=== PATIENT | female | born 1995 | race Caucasian/White ===

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

== ENCOUNTER 2017-01-30 13:48 | Inpatient (IN) | payer MEDICARE, MEDICAID ==
[~2017-01-30] VITALS: Ht 172.7 cm; Wt 63.2 kg
--- NOTE | ~2017-01-30 | CON ---
[place], [place] REPORT OF CONSULTATION [id number] UN[facility] #: [id number] ROOM: 403 DOCTOR: RM BERNSTEIN MD BIRTHDATE: [birth year] DOS: HISTORY OF PRESENT ILLNESS: The patient has presented with multiple complaints, epigastric distress as well as complaining that she has seen blood in her stool. The patient has been rectally examined. There is evidence of blood. The patient is a drinker of 3-4 large bottles of Mountain Dew and gastric distress with nausea. The patient is with a history of distal esophageal ulcer and normal colonoscopy on 12/01/2016. The patient therefore has been under investigation. She had recent set of blood work done, white blood cell was 6, H and H of 12 and 36. Lactic acid 1.0. INR 1.2. Comprehensive metabolic panel, electrolyte balance, liver function tests are normal. Amylase and lipase are normal. CT scan of the abdomen and pelvis, no acute process. CBC differential within normal limit. Comprehensive metabolic panel reassessed. PAST MEDICAL HISTORY: Associated with gastroesophageal reflux, anxiety, depression, POTS or postural orthostatic tachycardia history. PAST SURGICAL HISTORY: Cholecystectomy, EGD and colonoscopy recently. SOCIAL HISTORY: Nonsmoker, nonalcohol consumer, moderate consumer up large bottle of Mountain Dew. History otherwise unremarkable. FAMILY HISTORY: Noncontributory. ALLERGIES: PENICILLIN, TRAMADOL, MIDOL, LEVAQUIN. MEDICATIONS: List has been reviewed. REVIEW OF SYSTEMS: GENERAL: No hematemesis, no hematochezia, no shortness of breath, no chest pain. DIGESTIVE SYSTEM: Complain of blood in the stool and nausea, epigastric distress. PHYSICAL EXAMINATION: VITAL SIGNS: Stable. GENERAL: Not in acute distress. HEENT: Head normocephalic, nontraumatic. Mouth and buccal mucosa benign. NECK: Supple, no thyromegaly. CHEST: Symmetric anatomy, equal expansion. No wheeze. No rhonchi. HEART: Normal sinus rhythm, no gallop, no murmur. ABDOMEN: Soft. No hepato-organomegaly. Bowel sounds present. No pulsatile mass. EXTREMITIES: No cyanosis, no pedal edema. NEUROLOGIC: Alert, oriented to time, place and person. RECTAL: No blood on the glove. IMPRESSION: Gastritis secondary to large volume of Mountain Dew caffeinated beverage drinking. The patient advised to stop caffeinated beverages, history of gastritis, distal esophageal ulcer in past, history of normal colonoscopy, [place], [place] REPORT OF CONSULTATION NAME: ARLIN NORTH UNIT #: [id number] ROOM: [facility] DOCTOR: AMANDEEP LAINEZ,RM BIRTHDATE: [birth year] anxiety, depression. PLAN AND DISCUSSION: Protonix 40 mg every day p.o. would suffice, symptomatic management of other systems has been addressed by Internal Medicine Department. RM BERNSTEIN MD CM:CONSTR:REPORT OF CONSULTATION 1042 02/01/17 1355 interface
--- NOTE | ~2017-01-30 | PR ---
[place], [place] PROGRESS NOTE [id number] UN[facility] #: [id number] ROOM: 403 DOCTOR: KATLIN HARTMAN MD BIRTHDATE: [birth year] DOS: SUBJECTIVE: The patient was seen today at her bedside with her mother in attendance. She still feels poorly. She states that when she stands up, her heart races and she feels lightheaded. She did have a 500 mL bolus of saline solution last night, but states that it did not make any difference. This morning, her heart rate still increased to 160 when she stood up and she felt lightheaded like she could pass out. She had to sit down immediately. She denies any chest pain. She has not had any more vomiting, although she does have dry heaves. She states that she has been constipated for the last 2 days. PHYSICAL EXAMINATION: VITAL SIGNS: Her pulse is 120 and regular, blood pressure is 90/60. She is afebrile. She weighs 63.2 kilograms with a body mass index of 21.2. HEENT: Normocephalic, atraumatic. Extraocular muscles are intact. Sclerae are clear. Pupils are equal, round and reactive to light. The oral mucosa is moist. Tongue is midline. NECK: Supple. She has no jugular distention. Carotids are full without bruits. She has no neck or supraclavicular masses and no thyromegaly. LUNGS: Respirations are unlabored. Her chest is clear to auscultation and percussion. She has no presacral edema or chest wall tenderness. HEART: Has a regular rhythm without murmurs, rubs or gallops. ABDOMEN: Soft and diffusely tender. EXTREMITIES: Showed no edema. IMPRESSION: She continues to have symptoms of orthostatic tachycardia. PLAN: We will give her another fluid bolus today and recheck her CBC to make sure that she is not still losing blood. No other cardiac workup is planned at this time. I thank the hospitalist physicians for asking our advice regarding her care. KATLIN HARTMAN MD CM:PNTRANS [id number] KATLIN HARTMAN MD 02/02/17 2237 interface
--- NOTE | ~2017-01-30 | PR ---
[place], [place] PROGRESS NOTE [id number] #: [id number] ROOM: 403 DOCTOR: IRNIA MOORE MD BIRTHDATE: [birth year] DOS: INTERVAL NOTE SUBJECTIVE: The patient is doing the same as she was admitted on Thursday. She is still having abdominal pain. Dr. Romo saw the patient and he agreed with Protonix 40 mg IV. He is not planning any EGD at this point as she had already EGD done in the past. The patient was started on Carafate 1 gram 4 times a day and liquid diet was advanced. Then, the patient was seen by Dr. Young over the weekend. She was seen also by Cardiology and she has POTS (postural orthostatic tachycardia syndrome). The patient was recommended to cut back on her Adderall and also Abilify and 2D echo was ordered to rule out any structural heart disease. The patient was also given 500 mL of normal saline and was also suggested to avoid caffeine and decongestant that might increase her heart rate. Also he said that he would save medications such as fludrocortisone or beta blockers for intractable symptoms assuming that other measures are not helpful. Then, I saw the patient today morning. The patient is not having any chest pain or shortness of breath. She continues to have abdominal pain. OBJECTIVE: VITAL SIGNS: Blood pressure 90/60, pulse is 109, respiratory rate is 20, temperature 97.9. HEENT: Head normocephalic, atraumatic. Pupils equal, round, react to light. Extraocular movements are intact. Ear, nose, and throat: No discharge noted. NECK: No JVD, no lymphadenopathy, no thyromegaly. CHEST: Clinically clear to auscultation bilaterally. HEART: S1, S2, regular rate and no murmur, gallop or rub. ABDOMEN: Soft, but she does have diffuse tenderness. EXTREMITIES: No cyanosis, clubbing, or edema noted. LABORATORY DATA: Nonfocal deficit. Then, WBC count is 5, hemoglobin is 11.9, hematocrit 35.1. Then, basic panel, glucose is 137, BUN 6, creatinine 0.72 and sodium is 141. Calcium is low at 8.1. ASSESSMENT: At this time is, 1. Possible underlying severe gastritis and gastroesophageal reflux disease for which patient is on Protonix and Carafate. 2. Hypocalcemia. 3. Postural orthostatic tachycardia syndrome (POTS). 4. History of gastrointestinal bleed in the past. 5. Anxiety. 6. Panic attack. 7. Syncopal attacks, probably related to orthostatic tachycardia. 8. Status post cholecystectomy. PLAN OF CARE: 1. We will continue current medications at this point. 2. Wait for echo report and we will follow up with Dr. Romo and Dr. Barlow. 3. We will follow the patient in the morning. [place], [place] PROGRESS NOTE NAME: MARY ANNEROSLYNARLIN C UNIT #: [id number] ROOM: 403 DOCTOR: IRINA MOORE MD BIRTHDATE: [birth year] IRINA MOORE MD CM:ANA ROSA [id number] IRINA MOORE MD 02/03/17 0746 interface
--- NOTE | ~2017-01-30 | PR ---
[place], [place] PROGRESS NOTE [id number] UNIT #: [id number] ROOM: 403 DOCTOR: DAVID ADAMS MD BIRTHDATE: [birth year] DOS: SUBJECTIVE: The patient has been admitted to the hospital with GI bleeding with black colored stool, nausea and vomiting. Right now, she does not have any vomiting. There is no bowel movement. There are no black colored stools. She is still having some nausea and pain in the epigastrium. Dr. Romo does not think she may need any intervention as she has already undergone EGD in the past and has just GERD syndrome, nothing acute is going. He wants to continue present medication as before. Since the patient is having nausea, I am going to start her on Carafate 1 gram 4 times daily and we are going to advance her liquid diet to full normal diet. OBJECTIVE: VITAL SIGNS: Her blood pressure is 88/54, pulse 69, respirations 18, temperature 97.9. ABDOMEN: Some tenderness in the epigastrium. Bowel sounds are normal. Rest of her examination is normal. DAVID ADAMS MD CM:PNTRANS [id number] DAVID ADAMS MD 02/01/172126 interface
--- NOTE | ~2017-01-30 | CON ---
[place], [place] REPORT OF CONSULTATION [id number] UNIT #: [id number] ROOM: 403 DOCTOR: KATLIN HARTMAN MD BIRTHDATE: [birth year] DOS: 02/01/2017 REFERRED BY: Dr. Bo. REASON FOR CONSULTATION: Tachycardia. HISTORY OF PRESENT ILLNESS: The patient is a 21-year-old woman who was diagnosed at age 18 with POTS (postural orthostatic tachycardia syndrome) at the [facility]. She no longer follows with anybody there, although she states that she has been seen in Cardiology Clinic. She has had a history of recurrent gastritis and gastrointestinal bleeding. She was last admitted in September 2016 with melena and coffee-ground emesis. During that hospitalization, she did have orthostatic tachycardia with heart rates over 160. She was prescribed fluids and low dose beta david and discharged. She came back into the hospital on this occasion with abdominal pain and tarry stools. She was seen by Gastroenterology who felt that she had gastritis triggered by excess of caffeine consumption. Since she has been in the hospital, she has had episodes of tachycardia in excess of 190 beats per minute and therefore, Cardiology was asked to see her. She does have a degree of anemia. Her blood count did drop slightly since admission. Initially, her hemoglobin was 12 and now it is 11.1. Thyroid studies in September of this year were normal. The old records indicate that she had a tilt table test done at [facility], which suggested the diagnosis of POTS. She also had an echocardiogram, which was unremarkable. PAST MEDICAL HISTORY: Includes: 1. POTS (postural orthostatic tachycardia syndrome). 2. Recurrent gastritis and gastrointestinal bleeding. 3. Hypotension. 4. Anxiety. 5. Chronic abdominal pain. 6. Panic attacks. 7. Syncopal episodes, probably related to orthostatic tachycardia. 8. Status post cholecystectomy. MEDICATIONS: Prior to admission included Abilify 10 mg at bedtime, Adderall 20 mg every morning and 10 mg at 2 in the afternoon, diazepam 20 mg at bedtime and fluoxetine 40 mg daily. ALLERGIES: The patient lists allergies to TRAMADOL, PENICILLIN, AMOXICILLIN, MIDOL and LEVOFLOXACIN. FAMILY HISTORY: Negative for early coronary artery disease. Her mother has diabetes. REVIEW OF SYSTEMS: The patient denies diplopia or loss of vision. She does have syncopal episodes as noted above. She does feel tachycardia and weak and woozy when she changes positions. She has had nausea and vomiting and has had coffee-ground emesis recently. She denies fevers or chills. She has not had [place], [place] REPORT OF CONSULTATION NAME: ARLIN NORTH UNIT #: [id number] ROOM: 403 DOCTOR: KATLIN HARTMAN MD BIRTHDATE: [birth year] any recent weight change. She denies orthopnea or PND. She denies any focal weakness. She has had melanotic stools. She does complain of chronic abdominal discomfort. She denies any skin rashes. She does have multiple tattoos. She denies peripheral edema. The remainder of the review of systems is negative except as noted above. SOCIAL HISTORY: The patient is single. She is unemployed. She denies consumption of alcohol or tobacco. She denies caffeine use lately; however, she does have an open bottle of Mountain Dew on her bedside table. PHYSICAL EXAMINATION: GENERAL: The patient is a slender white female who is awake, alert and oriented. VITAL SIGNS: Pulse is 90 and regular, blood pressure is 117/71. She weighs 63.2 kg and has a body mass index of 21.2. HEENT: Normocephalic, atraumatic. Extraocular muscles are intact. Sclerae are clear. Pupils are equal, round and react to light. Oral mucosa is moist. Tongue is midline. NECK: Supple. She has no jugular distention. Carotids are full. I heard no bruits. She had no neck or supraclavicular masses. LUNGS: Respirations are unlabored. Her chest is clear to auscultation and percussion. She has no presacral edema or chest wall tenderness. HEART: Has a regular rhythm without murmurs, rubs or gallops. PMI is not displaced. She has no precordial heave, lift or thrill. ABDOMEN: Soft and normoactive. It is very tender diffusely. There is no mass or rebound. EXTREMITIES: Showed no edema. Peripheral pulses are easily palpated bilaterally. She does have multiple tattoos on her arms, legs, and back. IMPRESSION: 1. POTS (postural orthostatic tachycardia syndrome). 2. Gastritis with gastrointestinal bleeding. 3. Panic attacks and anxiety. PLAN: The patient reportedly has a well-documented history of POTS with positive tilt table study in the past. This is certainly exacerbated by blood loss as well as her psych medications, in particular Abilify and Adderall both, resulted in lightheadedness and Adderall specifically causes tachycardia. I would encourage minimizing medications as much as possible. We will encourage her to consume as much water and salt as she can reasonably in the hospital and for now, I will give her 500 mL saline fluid bolus to help with her tachycardia and lightheadedness. We will obtain an echocardiogram to make sure she does not have structural heart disease. She should absolutely avoid caffeine, decongestants or anything else that might increase her heart rate. I would save medications such as fludrocortisone or beta blockers for intractable symptoms assuming that hygienic measures are not helpful. I thank Dr. Bo for asking our advice regarding management of this patient. [place], [place] REPORT OF CONSULTATION NAME: ARLIN NORTH UNIT #: [id number] ROOM: 403 DOCTOR: KATLIN HARTMAN MD BIRTHDATE: [birth year] KATLIN HARTMAN MD CM:CONSTR:REPORT OF CONSULTATION 1540 02/02/17 0622 interface
--- NOTE | ~2017-01-30 | PR ---
[place], [place] PROGRESS NOTE [id number] UNIT #: [id number] ROOM: 403 DOCTOR: DAVID ADAMS MD BIRTHDATE: [birth year] DOS: SUBJECTIVE: The patient has been admitted to hospital with GI bleeding with black colored stools, nausea and vomiting and pain in the abdomen. She is still having a lot of pain in the abdomen and consultation with Gastroenterology, Dr. Romo has been called and she is waiting to be seen by him and she has past history of anxiety, chronic abdominal pain, depression, gastric ulcer, GERD syndrome, nephrolithiasis, panic syndrome, postural hypotension, syncopal attack in the past, vitamin D deficiency and vitamin B12 deficiency, past history of EGD and cholecystectomy. On examination, the patient seems to be conscious, alert, but still complaining of lot of pain. She had CT of the abdomen done, which does not show any acute problem. Her CBC today showed white count 5500, hemoglobin 11.1, hematocrit 33.7, showing slight hypochromic anemia, but it is not too much ____. Her hemoglobin and hematocrit after admission had only slight fall. Her comprehensive metabolic profile shows is hypoproteinemia and hypoalbuminemia, otherwise most other values are fairly normal. OBJECTIVE: VITAL SIGNS: Her blood pressure today is 110/73, pulse 64, respirations 18, temperature 97.9. CHEST: Clear. HEART: Regular. ABDOMEN: Having some ____ in the epigastrium, suprapubic region. Bowel sounds are present. Rest of examination is normal. DAVID ADAMS MD CM:PNTRANS [phone] DAVID ADAMS MD 01/31/172131 interface
[2017-01-30 14:09] VITALS: BP 113/66
[2017-01-30 14:19] VITALS: BP 120/58
[2017-01-30 14:59] LABS: BASO % 0.5 % (0.0-1.0); EOS # 0.1 10*3/uL (0.0-0.4); LYMPH # 2.1 10*3/uL (1.3-4.4); LYMPH % 32.6 % (27.0-41.0); MEAN CELL VOLUME 85.3 fl (81.0-99.0); MEAN CORPUSCULAR HGB 28.4 pg (27.0-31.0); MEAN CORPUSCULAR HGB CONC 33.3 g/dl (33.0-37.0); MEAN PLATELET VOLUME 10.8 fl (9.6-12.3); MONO # 0.4 10*3/uL (0.1-1.0); MONO % 6.2 % (3.0-9.0); NEUT # 3.7 10*3/uL (2.3-7.9); NEUT % 59.4 % (47.0-73.0); PLATELET COUNT AUTOMATED 301 10*3/uL (130-400); RED BLOOD COUNT 4.22 10*6/uL (4.10-5.10); RED CELL DISTRI WIDTH 12.9 % (0-14.5); WHITE BLOOD COUNT 6.3 10*3/uL (4.8-10.8)
[2017-01-30 15:06] LABS: INTERNATIONAL NORM RATIO 1.2 (2.0-3.5); PROTHROMBIN TIME 12.5 SECONDS (9.0-12.4)
[2017-01-30 15:20] LABS: ALBUMIN 3.4 gm/dl (3.1-4.5); ALKALINE PHOSPHATASE 64 U/L (45-117); BILIRUBIN, TOTAL 0.5 mg/dl (0.2-1.0); BUN 8 mg/dl (7-24); CARBON DIOXIDE 23 mmol/L (21-32); CHLORIDE 108 mmol/L (98-107); EST GLOM FILT AFRICAN AMERICAN > 60 ml/min; GLUCOSE 86 mg/dL (65-99); SGPT/ALT 16 U/L (12-78); SODIUM 142 mmol/L (136-145); TOTAL PROTEIN 7.1 gm/dL (6.4-8.2)
[2017-01-30 15:31] LABS: SGOT/AST 20 IU/L (3-35)
[2017-01-30] MEDS ORDERED: PROZAC40 M1 PO (16:37)
[2017-01-30 17:09] VITALS: BP 93/50
[2017-01-30 20:00] VITALS: BP 101/49; BP 154/65
[2017-01-31] VITALS: BP 110/73
[2017-01-31 06:33] LABS: BASO % 0.7 % (0.0-1.0); EOS # 0.1 10*3/uL (0.0-0.4); EOS % 1.6 % (1.0-4.0); HEMATOCRIT 33.7 % (37.0-47.0); HEMOGLOBIN 11.1 g/dl (12.0-16.0); LYMPH # 2.9 10*3/uL (1.3-4.4); LYMPH % 53.2 % (27.0-41.0); MEAN CELL VOLUME 87.3 fl (81.0-99.0); MEAN CORPUSCULAR HGB 28.8 pg (27.0-31.0); MEAN CORPUSCULAR HGB CONC 32.9 g/dl (33.0-37.0); MEAN PLATELET VOLUME 9.9 fl (9.6-12.3); MONO # 0.4 10*3/uL (0.1-1.0); MONO % 7.7 % (3.0-9.0); NEUT % 36.4 % (47.0-73.0); PLATELET COUNT AUTOMATED 255 10*3/uL (130-400); RED BLOOD COUNT 3.86 10*6/uL (4.10-5.10); RED CELL DISTRI WIDTH 12.8 % (0-14.5); WHITE BLOOD COUNT 5.5 10*3/uL (4.8-10.8)
[2017-01-31 07:02] LABS: ALBUMIN 2.9 gm/dl (3.1-4.5); ALKALINE PHOSPHATASE 59 U/L (45-117); BILIRUBIN, TOTAL 0.5 mg/dl (0.2-1.0); BUN 6 mg/dl (7-24); CARBON DIOXIDE 27 mmol/L (21-32); CHLORIDE 108 mmol/L (98-107); EST GLOM FILT AFRICAN AMERICAN > 60 ml/min; GLUCOSE 79 mg/dL (65-99); POTASSIUM 3.8 mmol/L (3.5-5.1); SGOT/AST 15 IU/L (3-35); SGPT/ALT 11 U/L (12-78); SODIUM 144 mmol/L (136-145)
[2017-01-31 08:00] VITALS: BP 94/49
[2017-01-31 12:00] VITALS: BP 103/56
[2017-01-31 16:00] VITALS: BP 99/52
[2017-01-31 20:00] VITALS: BP 105/58
[2017-02-01] VITALS: BP 92/58
[2017-02-01 08:00] VITALS: BP 88/54
[2017-02-01 12:00] VITALS: BP 117/71
[2017-02-01 16:00] VITALS: BP 95/53
[2017-02-01 20:00] VITALS: BP 121/75
[2017-02-02] VITALS: BP 112/65
[2017-02-02 08:00] VITALS: BP 90/60
[2017-02-02 12:00] VITALS: BP 109/70
[2017-02-02 12:18] LABS: BASO % 0.4 % (0.0-1.0); EOS % 0.8 % (1.0-4.0); HEMATOCRIT 35.1 % (37.0-47.0); HEMOGLOBIN 11.9 g/dl (12.0-16.0); LYMPH # 1.6 10*3/uL (1.3-4.4); LYMPH % 32.9 % (27.0-41.0); MEAN CELL VOLUME 84.6 fl (81.0-99.0); MEAN CORPUSCULAR HGB 28.7 pg (27.0-31.0); MEAN CORPUSCULAR HGB CONC 33.9 g/dl (33.0-37.0); MEAN PLATELET VOLUME 10.3 fl (9.6-12.3); MONO # 0.2 10*3/uL (0.1-1.0); NEUT # 3.1 10*3/uL (2.3-7.9); NEUT % 61.5 % (47.0-73.0); PLATELET COUNT AUTOMATED 294 10*3/uL (130-400); RED BLOOD COUNT 4.15 10*6/uL (4.10-5.10); RED CELL DISTRI WIDTH 12.3 % (0-14.5)
[2017-02-02 12:40] LABS: BUN 6 mg/dl (7-24); CARBON DIOXIDE 24 mmol/L (21-32); CHLORIDE 107 mmol/L (98-107); EST GLOM FILT AFRICAN AMERICAN > 60 ml/min; GLUCOSE 137 mg/dL (65-99); POTASSIUM 3.5 mmol/L (3.5-5.1); SODIUM 141 mmol/L (136-145)
[2017-02-02 16:00] VITALS: BP 96/61
[2017-02-02 20:00] VITALS: BP 106/63
[2017-02-03] VITALS: BP 120/81
[2017-02-03 08:00] VITALS: BP 100/66
[2017-02-03] MEDS ORDERED: METOPROLOL SUCC25 M2 PO (11:30)
[2017-02-03] MEDS ORDERED: PRILOSEC20 M1 PO (11:34)
== END 2017-02-03 12:12 | disposition home or self-care (01) | DRG 377 ==
LOC: ED 13:48 → EDHOLD 16:06 → 4E 16:06
PROVIDERS: Internal Medicine; Internal Medicine Cardiovascular Disease; Physician Assistant
DX: K92.2 Gastrointestinal hemorrhage, unspecified (principal); E43 Unspecified severe protein-calorie malnutrition; I95.9 Hypotension, unspecified; Z68.1 Body mass index [BMI] 19.9 or less, adult; I49.8 Other specified cardiac arrhythmias; R00.0 Tachycardia, unspecified; R19.7 Diarrhea, unspecified; Z88.0 Allergy status to penicillin; Z88.6 Allergy status to analgesic agent; Z88.1 Allergy status to other antibiotic agents; Z88.8 Allergy status to other drugs, medicaments and biological substances; Z90.49 Acquired absence of other specified parts of digestive tract; Z87.01 Personal history of pneumonia (recurrent); F32.9 Major depressive disorder, single episode, unspecified; K21.9 Gastro-esophageal reflux disease without esophagitis; Z83.3 Family history of diabetes mellitus; Z79.899 Other long term (current) drug therapy; K29.70 Gastritis, unspecified, without bleeding; F41.0 Panic disorder [episodic paroxysmal anxiety]

== ENCOUNTER → 2017-10-23 | Outpatient (CLI) | payer MEDICARE, MEDICAID ==
[~2017-10-23] MED LIST changes: +METOPROLOL SUCC25 M2 PO; +PROZAC40 M1 PO
[2017-10-23 14:52] LABS: BASO # 0.1 10*3/uL (0.0-0.1); BASO % 0.7 % (0.0-1.0); EOS # 0.1 10*3/uL (0.0-0.4); EOS % 0.9 % (1.0-4.0); HEMATOCRIT 44.1 % (37.0-47.0); HEMOGLOBIN 14.5 g/dl (12.0-16.0); LYMPH # 3.3 10*3/uL (1.3-4.4); LYMPH % 36.5 % (27.0-41.0); MEAN CELL VOLUME 90.7 fl (81.0-99.0); MEAN CORPUSCULAR HGB 29.8 pg (27.0-31.0); MEAN CORPUSCULAR HGB CONC 32.9 g/dl (33.0-37.0); MEAN PLATELET VOLUME 9.7 fl (9.6-12.3); MONO # 0.5 10*3/uL (0.1-1.0); MONO % 5.9 % (3.0-9.0); NEUT # 5.1 10*3/uL (2.3-7.9); NEUT % 55.7 % (47.0-73.0); PLATELET COUNT AUTOMATED 461 10*3/uL (130-400); RED BLOOD COUNT 4.86 10*6/uL (4.10-5.10); RED CELL DISTRI WIDTH 12.2 % (0-14.5); WHITE BLOOD COUNT 9.1 10*3/uL (4.8-10.8)
== END | disposition home or self-care (01) ==
LOC: LAB 14:27
PROVIDERS: Internal Medicine
DX: R59.0 Localized enlarged lymph nodes (principal)

== ENCOUNTER 2017-12-09 20:06 | Emergency (ER) | payer MEDICARE, MEDICAID ==
[~2017-12-09] VITALS: Ht 172.7 cm; Wt 60.3 kg
[2017-12-09 20:07] VITALS: BP 117/80
[2017-12-09 20:44] LABS: BILIRUBIN NEGATIVE (NEGATIVE); BLOOD 2+ (NEGATIVE); CLARITY SL CLOUDY (CLEAR); COLOR YELLOW (YELLOW); GLUCOSE NEGATIVE (NEGATIVE); KETONE NEGATIVE (NEGATIVE); LEUKO ESTERASE NEGATIVE (NEGATIVE); NITRITE NEGATIVE (NEGATIVE)
[2017-12-09 20:54] LABS: BACTERIA 1+; EPITHELIAL CELLS 30-40; RBC 21-30 rbc/hpf (0-2); WBC 0-2 wbc/hpf (0-5)
[2017-12-09 21:51] LABS: BASO % 0.4 % (0.0-1.0); EOS # 0.1 10*3/uL (0.0-0.4); HEMATOCRIT 39.3 % (37.0-47.0); HEMOGLOBIN 13.2 g/dl (12.0-16.0); LYMPH # 2.8 10*3/uL (1.3-4.4); MEAN CELL VOLUME 90.3 fl (81.0-99.0); MEAN CORPUSCULAR HGB 30.3 pg (27.0-31.0); MEAN CORPUSCULAR HGB CONC 33.6 g/dl (33.0-37.0); MEAN PLATELET VOLUME 10.1 fl (9.6-12.3); MONO # 0.5 10*3/uL (0.1-1.0); MONO % 7.6 % (3.0-9.0); NEUT # 3.5 10*3/uL (2.3-7.9); NEUT % 50.7 % (47.0-73.0); PLATELET COUNT AUTOMATED 343 10*3/uL (130-400); RED BLOOD COUNT 4.35 10*6/uL (4.10-5.10); RED CELL DISTRI WIDTH 11.9 % (0-14.5)
[2017-12-09 22:02] LABS: BUN 9 mg/dl (7-24); CHLORIDE 105 mmol/L (98-107); CREATININE 0.68 mg/dL (0.55-1.02); POTASSIUM 3.7 mmol/L (3.5-5.1); SODIUM 138 mmol/L (136-145)
[2017-12-09] MEDS ORDERED: KETOROLAC10 MG PO (22:37)
[2017-12-09] MEDS ORDERED: MACROBID100 M1 PO (22:37)
== END 2017-12-09 22:37 | disposition home or self-care (01) ==
LOC: ED 20:06
PROVIDERS: Emergency Medicine Emergency Medical Services
DX: N39.0 Urinary tract infection, site not specified (principal); R31.9 Hematuria, unspecified; G89.29 Other chronic pain; K21.9 Gastro-esophageal reflux disease without esophagitis; Z87.11 Personal history of peptic ulcer disease; Z88.6 Allergy status to analgesic agent; Z88.0 Allergy status to penicillin; Z90.49 Acquired absence of other specified parts of digestive tract; Z88.1 Allergy status to other antibiotic agents; Z79.899 Other long term (current) drug therapy

== ENCOUNTER 2018-11-02 20:17 | Emergency (ER) | payer MEDICARE, MEDICAID ==
[~2018-11-02] VITALS: Ht 172.7 cm; Wt 63.5 kg
[~2018-11-02 20:17] MED LIST changes: +KETOROLAC10 MG PO
[2018-11-02 20:21] VITALS: BP 112/83
[2018-11-02 20:37] LABS: BASO % 0.2 % (0.0-1.0); EOS # 0.1 10*3/uL (0.0-0.4); EOS % 1.4 % (1.0-4.0); HEMATOCRIT 38.6 % (37.0-47.0); HEMOGLOBIN 12.8 g/dl (12.0-16.0); LYMPH # 0.9 10*3/uL (1.3-4.4); LYMPH % 9.2 % (27.0-41.0); MEAN CELL VOLUME 89.8 fl (81.0-99.0); MEAN CORPUSCULAR HGB 29.8 pg (27.0-31.0); MEAN CORPUSCULAR HGB CONC 33.2 g/dl (33.0-37.0); MEAN PLATELET VOLUME 10.1 fl (9.6-12.3); MONO # 0.3 10*3/uL (0.1-1.0); MONO % 2.9 % (3.0-9.0); NEUT # 8.1 10*3/uL (2.3-7.9); NEUT % 85.9 % (47.0-73.0); PLATELET COUNT AUTOMATED 444 10*3/uL (130-400); RED CELL DISTRI WIDTH 12.2 % (0-14.5); WHITE BLOOD COUNT 9.4 10*3/uL (4.8-10.8)
[2018-11-02 20:50] LABS: BILIRUBIN NEGATIVE (NEGATIVE); BLOOD NEGATIVE (NEGATIVE); CLARITY SL CLOUDY (CLEAR); COLOR YELLOW (YELLOW); GLUCOSE NEGATIVE (NEGATIVE); KETONE TRACE (NEGATIVE); LEUKO ESTERASE NEGATIVE (NEGATIVE); NITRITE NEGATIVE (NEGATIVE); SPECIFIC GRAVITY 1.025 (1.005-1.030); UROBILINOGEN 0.2 E.U./dl (0.2-1.0)
[2018-11-02 21:01] LABS: ALBUMIN 3.5 gm/dl (3.1-4.5); ALKALINE PHOSPHATASE 100 U/L (45-117); BUN 12 mg/dl (7-24); CHLORIDE 105 mmol/L (98-107); CREATININE 0.75 mg/dL (0.55-1.02); LIPASE 135 U/L (73-393); SGOT/AST 35 IU/L (3-35); SGPT/ALT 25 U/L (12-78); SODIUM 138 mmol/L (136-145); TOTAL PROTEIN 7.5 gm/dL (6.4-8.2)
[2018-11-02 21:04] LABS: BETA-HCG, QUANT < 1.0 mIU/mL (1-3)
== END 2018-11-02 23:44 | disposition home or self-care (01) ==
LOC: ED 20:17
PROVIDERS: Student in an Organized Health Care Education/Training Program
DX: R11.2 Nausea with vomiting, unspecified (principal); R10.33 Periumbilical pain; K21.9 Gastro-esophageal reflux disease without esophagitis; Z88.0 Allergy status to penicillin; Z88.1 Allergy status to other antibiotic agents; Z88.8 Allergy status to other drugs, medicaments and biological substances; Z88.6 Allergy status to analgesic agent; Z79.899 Other long term (current) drug therapy

== ENCOUNTER 2019-03-08 21:24 | Emergency (ER) | payer MEDICARE ==
[~2019-03-08] VITALS: Ht 172.7 cm; Wt 70.8 kg
[2019-03-08 21:26] VITALS: BP 132/81
== END 2019-03-09 00:31 | disposition home or self-care (01) ==
LOC: ED 21:24
DX: S50.12XA Contusion of left forearm, initial encounter (principal); Z88.8 Allergy status to other drugs, medicaments and biological substances; Z88.0 Allergy status to penicillin; Z88.1 Allergy status to other antibiotic agents; Z79.2 Long term (current) use of antibiotics; Z79.899 Other long term (current) drug therapy; Z90.49 Acquired absence of other specified parts of digestive tract; W20.8XXA Other cause of strike by thrown, projected or falling object, initial encounter; Y93.89 Activity, other specified; Y92.89 Other specified places as the place of occurrence of the external cause; Y99.8 Other external cause status

== ENCOUNTER 2021-04-14 08:30 | Emergency (ER) | payer OTHER ==
[2021-04-14 08:35] VITALS: BP 137/88
[2021-04-14] MEDS ORDERED: NAPROXEN250 MG PO (09:10)
[2021-04-14] MEDS ORDERED: CLINDAMYCIN HC300 MG PO (09:10)
[2021-04-14] MEDS ORDERED: TYLENOL325 M1 PO (09:10)
[2021-04-14] MEDS ORDERED: Peridex 473 ML473 ML PO (09:21)
== END 2021-04-14 09:20 | disposition home or self-care (01) ==
LOC: ED 08:30
DX: K02.9 Dental caries, unspecified (principal); K21.9 Gastro-esophageal reflux disease without esophagitis; Z88.1 Allergy status to other antibiotic agents; Z88.6 Allergy status to analgesic agent; Z88.8 Allergy status to other drugs, medicaments and biological substances; Z79.899 Other long term (current) drug therapy

== ENCOUNTER 2022-09-07 18:07 | Emergency (ER) | payer OTHER ==
[~2022-09-07] VITALS: Ht 170.1 cm; Wt 72.6 kg
[~2022-09-07 18:07] MED LIST changes: +CLINDAMYCIN HC300 MG PO; +NAPROXEN250 MG PO; +Peridex 473 ML473 ML PO; +TYLENOL325 M1 PO
[2022-09-07 18:22] VITALS: BP 124/86
[2022-09-07] MEDS ORDERED: CLINDAMYCIN HC300 MG PO (18:31)
== END 2022-09-07 18:45 | disposition home or self-care (01) ==
LOC: ED 18:07
DX: K02.7 Dental root caries (principal); Z88.8 Allergy status to other drugs, medicaments and biological substances; Z88.0 Allergy status to penicillin; Z88.1 Allergy status to other antibiotic agents; Z88.5 Allergy status to narcotic agent; Z90.49 Acquired absence of other specified parts of digestive tract; Z98.890 Other specified postprocedural states

== ENCOUNTER 2022-09-08 22:19 | Emergency (ER) | payer OTHER ==
[~2022-09-08] VITALS: Ht 170.1 cm; Wt 72.6 kg
[2022-09-08 22:36] VITALS: BP 124/85
== END 2022-09-08 23:25 | disposition home or self-care (01) ==
LOC: ED 22:19
DX: K04.7 Periapical abscess without sinus (principal); Z88.0 Allergy status to penicillin; Z88.1 Allergy status to other antibiotic agents; Z88.8 Allergy status to other drugs, medicaments and biological substances; Z90.49 Acquired absence of other specified parts of digestive tract; Z98.890 Other specified postprocedural states

== ENCOUNTER 2022-10-13 14:51 | Emergency (ER) | payer OTHER ==
[~2022-10-13] VITALS: Wt 63.5 kg
[2022-10-13 15:01] VITALS: BP 120/84
[2022-10-13] MEDS ORDERED: CLINDAMYCIN HC300 MG PO (15:07)
[2022-10-13] MEDS ORDERED: Percocet 325 MG1 TAB PO (15:17)
== END 2022-10-13 15:28 | disposition home or self-care (01) ==
LOC: ED 14:51
DX: K08.89 Other specified disorders of teeth and supporting structures (principal); F41.9 Anxiety disorder, unspecified; G43.909 Migraine, unspecified, not intractable, without status migrainosus; F31.9 Bipolar disorder, unspecified; Z88.0 Allergy status to penicillin; Z88.1 Allergy status to other antibiotic agents; Z88.8 Allergy status to other drugs, medicaments and biological substances; Z90.49 Acquired absence of other specified parts of digestive tract; Z98.890 Other specified postprocedural states

== ENCOUNTER 2022-12-01 22:51 | Emergency (ER) | payer OTHER ==
[~2022-12-01] VITALS: Ht 170.1 cm; Wt 59.0 kg
[~2022-12-01 22:51] MED LIST changes: +Percocet 325 MG1 TAB PO
[2022-12-01 22:55] VITALS: BP 120/76
[2022-12-01] MEDS ORDERED: WAL ITIN PO (23:37)
== END 2022-12-01 23:53 | disposition home or self-care (01) ==
LOC: ED 22:51
DX: L50.9 Urticaria, unspecified (principal); T78.40XA Allergy, unspecified, initial encounter; F41.9 Anxiety disorder, unspecified; G43.909 Migraine, unspecified, not intractable, without status migrainosus; Z88.8 Allergy status to other drugs, medicaments and biological substances; Z88.0 Allergy status to penicillin; Z88.1 Allergy status to other antibiotic agents; Z90.49 Acquired absence of other specified parts of digestive tract; Z98.890 Other specified postprocedural states; F31.9 Bipolar disorder, unspecified; X58.XXXA Exposure to other specified factors, initial encounter

== ENCOUNTER 2022-12-03 09:53 | Emergency (ER) | payer OTHER ==
[~2022-12-03] VITALS: Ht 170.1 cm; Wt 63.5 kg
[~2022-12-03 09:53] MED LIST changes: +WAL ITIN PO
[2022-12-03 10:17] VITALS: BP 130/86
[2022-12-03] MEDS ORDERED: PREDNISONE50 MG PO (11:15)
== END 2022-12-03 11:28 | disposition home or self-care (01) ==
LOC: ED 09:53
DX: T78.40XA Allergy, unspecified, initial encounter (principal); F41.9 Anxiety disorder, unspecified; G43.909 Migraine, unspecified, not intractable, without status migrainosus; F31.9 Bipolar disorder, unspecified; Z88.0 Allergy status to penicillin; Z88.1 Allergy status to other antibiotic agents; Z88.8 Allergy status to other drugs, medicaments and biological substances; Z90.49 Acquired absence of other specified parts of digestive tract; Z98.890 Other specified postprocedural states; X58.XXXA Exposure to other specified factors, initial encounter

== ENCOUNTER 2024-06-17 19:28 | Emergency (ER) | payer SELFPAY ==
[~2024-06-17] VITALS: Wt 72.6 kg
[~2024-06-17 19:28] MED LIST changes: -HYDROCODONE-AC1 EAC1 PO; -Ondansetron4 MG PO; -SEPTDS PO
[2024-06-17] MEDS ORDERED: Ondansetron Hydrochloride 4 MG/2 ML VIAL IV ONE (19:50)
[2024-06-17] MEDS ORDERED: Ketorolac Tromethamine 15 MG/ML VIAL IV ONE (19:50)
[2024-06-17] MEDS ORDERED: SODIUM CHLORIDE 0.9% 1,000 ML IV ONE (19:50)
[2024-06-17 20:10] LABS: BASO % 0.4 % (0.0-1.0); EOS # 0.1 10*3/uL (0.0-0.4); EOS % 1.7 % (1.0-4.0); HEMATOCRIT 41.2 % (37.0-47.0); LYMPH # 2.2 10*3/uL (1.3-4.4); LYMPH % 29.7 % (27.0-41.0); MEAN CELL VOLUME 91.2 fl (81.0-99.0); MEAN CORPUSCULAR HGB 29.6 pg (27.0-31.0); MEAN CORPUSCULAR HGB CONC 32.5 g/dl (33.0-37.0); MEAN PLATELET VOLUME 9.4 fl (9.6-12.3); MONO # 0.4 10*3/uL (0.1-1.0); MONO % 5.9 % (3.0-9.0); NEUT # 4.6 10*3/uL (2.3-7.9); PLATELET COUNT AUTOMATED 395 10*3/uL (130-400); RED BLOOD COUNT 4.52 10*6/uL (4.10-5.10); RED CELL DISTRI WIDTH 12.1 % (0-14.5); WHITE BLOOD COUNT 7.5 10*3/uL (4.8-10.8)
[2024-06-17 20:36] LABS: ALKALINE PHOSPHATASE 75 U/L (46-116); CHLORIDE 108 mmol/L (98-107); POTASSIUM 3.8 mmol/L (3.4-5.1); SGPT/ALT 10 U/L (5-49)
[2024-06-17 20:38] LABS: BUN < 5 mg/dl (9-23)
[2024-06-17 20:56] VITALS: BP 119/82
[2024-06-17] MEDS ORDERED: FLOMAX0.4 MG PO (20:59)
[2024-06-17] MEDS ORDERED: Ondansetron4 MG PO (20:59)
[2024-06-17] MEDS ORDERED: KETOROLAC10 MG PO (20:59)
[2024-06-17] MEDS ORDERED: SEPTDS PO (20:59)
[2024-06-17] MEDS ORDERED: fentaNYL CITRATE/PF 50 MCG/ML SYRINGE IV ONE (21:00)
[2024-06-17] MEDS ORDERED: Sulfamethoxazole/Trimethopri 1 TAB TAB PO ONE (21:00)
[2024-06-17] MEDS ORDERED: Tamsulosin Hydrochloride 0.4 MG CAP PO ONE (21:00)
[2024-06-17] MEDS ORDERED: Ondansetron 4 MG 2 TAB ED PACK PO SCH (21:05)
[2024-06-17] MEDS ORDERED: Ketorolac Tromethamine 10 MG TAB PO ONE (21:05)
[2024-06-18] MEDS ORDERED: HYDROCODONE-AC1 EAC1 PO (14:03)
== END 2024-06-17 21:54 | disposition home or self-care (01) ==
LOC: ED 19:28
PROVIDERS: Nurse Practitioner Family
DX: N13.2 Hydronephrosis with renal and ureteral calculous obstruction (principal); F41.9 Anxiety disorder, unspecified; G43.909 Migraine, unspecified, not intractable, without status migrainosus; F31.9 Bipolar disorder, unspecified; Z88.5 Allergy status to narcotic agent; Z88.0 Allergy status to penicillin; Z88.1 Allergy status to other antibiotic agents; Z88.8 Allergy status to other drugs, medicaments and biological substances; Z90.49 Acquired absence of other specified parts of digestive tract; Z98.890 Other specified postprocedural states

== ENCOUNTER → 2024-06-17 | Emergency (ER) | payer SELFPAY ==
[~2024-06-17] MED LIST changes: +CLARITIN10 MG PO; +HYDROCODONE-AC1 EAC1 PO; +Ondansetron4 MG PO; +PREDNISONE50 MG PO; +SEPTDS PO; +ZITHROMAX250 MG PO
== END ==
LOC: ED 06:47
DX: M54.50 Low back pain, unspecified (principal); Z88.0 Allergy status to penicillin; Z88.1 Allergy status to other antibiotic agents; Z88.5 Allergy status to narcotic agent; Z88.8 Allergy status to other drugs, medicaments and biological substances; Z53.21 Procedure and treatment not carried out due to patient leaving prior to being seen by health care provider

== ENCOUNTER 2024-06-18 11:44 | Emergency (ER) | payer SELFPAY ==
[~2024-06-18] VITALS: Ht 170.1 cm; Wt 72.6 kg
[~2024-06-18 11:44] MED LIST changes: +Ondansetron4 MG PO; +SEPTDS PO
[2024-06-18 12:17] VITALS: BP 125/67
[2024-06-18] MEDS ORDERED: SODIUM CHLORIDE 0.9% 1,000 ML IV ONE (12:25)
[2024-06-18] MEDS ORDERED: fentaNYL CITRATE 100 MCG/2 ML VIAL IV ONE (12:30)
[2024-06-18] MEDS ORDERED: Ondansetron Hydrochloride 4 MG/2 ML VIAL IV ONE (12:30)
[2024-06-18 12:47] LABS: BASO % 0.5 % (0.0-1.0); EOS # 0.1 10*3/uL (0.0-0.4); EOS % 1.1 % (1.0-4.0); HEMATOCRIT 41.3 % (37.0-47.0); LYMPH # 2.2 10*3/uL (1.3-4.4); LYMPH % 32.9 % (27.0-41.0); MEAN CELL VOLUME 91.4 fl (81.0-99.0); MEAN CORPUSCULAR HGB 29.6 pg (27.0-31.0); MEAN CORPUSCULAR HGB CONC 32.4 g/dl (33.0-37.0); MEAN PLATELET VOLUME 9.5 fl (9.6-12.3); MONO # 0.4 10*3/uL (0.1-1.0); MONO % 5.9 % (3.0-9.0); NEUT # 3.9 10*3/uL (2.3-7.9); NEUT % 59.1 % (47.0-73.0); PLATELET COUNT AUTOMATED 378 10*3/uL (130-400); RED BLOOD COUNT 4.52 10*6/uL (4.10-5.10); RED CELL DISTRI WIDTH 12.2 % (0-14.5); WHITE BLOOD COUNT 6.6 10*3/uL (4.8-10.8)
[2024-06-18 12:59] LABS: CHLORIDE 108 mmol/L (98-107); POTASSIUM 3.5 mmol/L (3.4-5.1)
[2024-06-18 13:03] LABS: BUN < 5 mg/dl (9-23)
[2024-06-18] MEDS ORDERED: Ketorolac Tromethamine 30 MG/ML VIAL IV ONE (13:15)
[2024-06-18] MEDS ORDERED: HYDROmorphONE Hydrochloride 0.5 MG/0.5 ML SYRINGE IV ONE (13:15)
[2024-06-18] MEDS ORDERED: HYDROCODONE-AC1 EAC1 PO (14:03)
[2024-06-18] MEDS ORDERED: Sulfamethoxazole/Trimethopri 1 TAB TAB PO ONE (14:05)
[2024-06-18] MEDS ORDERED: Tamsulosin Hydrochloride 0.4 MG CAP PO ONE (14:05)
== END 2024-06-18 14:32 | disposition home or self-care (01) ==
LOC: ED 11:44
PROVIDERS: Nurse Practitioner Family
DX: N20.0 Calculus of kidney (principal); F41.9 Anxiety disorder, unspecified; F32.A Depression, unspecified; K21.9 Gastro-esophageal reflux disease without esophagitis; Z87.442 Personal history of urinary calculi; Z88.8 Allergy status to other drugs, medicaments and biological substances; Z88.0 Allergy status to penicillin; Z88.1 Allergy status to other antibiotic agents; Z79.899 Other long term (current) drug therapy; Z90.49 Acquired absence of other specified parts of digestive tract

== ENCOUNTER 2025-07-18 18:47 | Emergency (ER) | payer SELFPAY ==
[~2025-07-18] VITALS: Ht 167.6 cm; Wt 63.0 kg
[~2025-07-18 18:47] MED LIST changes: +HYDROCODONE-AC1 EAC1 PO
[2025-07-18 19:40] VITALS: BP 119/89
[2025-07-18] MEDS ORDERED: ZITHROMAX250 MG PO (21:59)
[2025-07-18] MEDS ORDERED: MEDROL DOSEPAK4 MG PO (21:59)
[2025-07-18] MEDS ORDERED: AZITHROMYCIN 250 MG TAB PO ONE (22:00)
== END 2025-07-18 22:12 | disposition home or self-care (01) ==
LOC: ED 18:47
DX: J01.00 Acute maxillary sinusitis, unspecified (principal); J01.10 Acute frontal sinusitis, unspecified; Z88.8 Allergy status to other drugs, medicaments and biological substances; Z88.0 Allergy status to penicillin; Z88.1 Allergy status to other antibiotic agents; Z79.899 Other long term (current) drug therapy; Z90.49 Acquired absence of other specified parts of digestive tract